=== PATIENT | female | born 1945 | race Asian ===

== ENCOUNTER 2021-08-04 11:03 | Emergency (ER) | payer MEDICARE, OTHER ==
[2021-08-04 11:14] VITALS: BP 100/73
--- NOTE | 2021-08-04 12:05 | XRAY Report ---
PROCEDURE: Knee 3 View RT INDICATIONS: pain; no trauma TECHNIQUE: 3 views of the right knee(s) were acquired. COMPARISON: None. FINDINGS: Bones: No fractures or dislocations. No suspicious bony lesions. Chondrocalcinosis. Mild medial co mpartment joint space loss. Soft tissues: No joint effusion. No suspicious soft tissue calcifications. IMPRESSION: CPPD arthropathy. No evidence acute bony abnormality of the right knee. If clinical suspicion and/or symptoms persist, further assessment with repeat plain films or advanced imaging (e.g., CT, MRI, or bone scan) may be helpful for further assessment. Reviewed by: Shar Vieyra MD on 08/04/2021 12:03 PM PDT Approved by: Shar Vieyra MD on 08/04/2021 12:03 PM PDT Station ID: [id number]
--- NOTE | 2021-08-04 12:14 | ED Physician Documentation ---
History of Present Illness - Stated complaint Stated Complaint: R LEG/KNEE PAIN - Chief complaint Chief Complaint: Ext Problem - Additonal information Additional information: 76-year-old female presents emergency department for evaluation of 2 days right knee pain. No recent falls or trauma no swelling. She does have a history of arthritis. States it is painful mostly behind the knee especially when ambulating. Review of Systems Constitutional: denies: Fever, Chills Nose: reports: Reviewed and negative Throat: reports: Reviewed and negative Cardiac: reports: Reviewed and negative Respiratory: reports: Reviewed and negative GI: reports: Reviewed and negative Musculoskeletal: reports: Joint pain Neurologic: reports: Reviewed and negative PD PAST MEDICAL HISTORY - Allergies Allergies/Adverse Reactions: Allergies Allergy/AdvReac Type Severity Reaction Status Date / Time No Known Drug Allergies Allergy Verified 08/04/21 11:14 PD ED PE EXPANDED - General General: Alert, No acute distress, Well developed/nourished - Extremities Extremities: Right knee (Tenderness posterior knee with palpation. No obvious swelling. Limited flexion secondary to pain. She does have a palpable swelling in the posterior knee when standing. Distal 2+ DP pulse. Antalgic gait using a cane.) Results - Vitals Vitals: Vital Signs - 24 hr 08/04/21 11:09 Temperature 36.4 C L Heart Rate 73 Respiratory 16 Rate Blood Pressure 100/73 O2 Saturation 97 Oxygen O2 Source Room air - Rads (name of study) rightee Radiology: Final report received (CPPD arthropathy. No evidence of acute bony abnormality of the right knee.) PD MEDICAL DECISION MAKING - ED course Complexity details: reviewed results, re-evaluated patient, considered differential, d/w patient ED course: 76-year-old female presents emergency department for evaluation of 2 days posterior right knee pain in the absence of trauma. X-ray suggest CPPD arthropathy. On exam she does have palpable swelling behind the left knee most consistent with a Contreras's cyst. These findings were discussed with the patient and her soon-to-be at the bedside. She was given an Aram wrap and felt marked improvement in her symptoms. Did recommend a short course of NSAID medication coupled with Tylenol. She will follow-up with her primary care provider. If not markedly better in 7 to 10 days may benefit from referral to orthopedics. Departure - Departure Disposition: 01 Home, Self Care Clinical Impression: Knee arthropathy Contreras's cyst of knee Qualifiers: Laterality: right Qualified Code(s): M71.21 - Synovial cyst of popliteal space [Contreras], right knee Condition: Stable Record reviewed to determine appropriate education?: Yes Comments: Elyssa you are seen today for pain behind your right knee. The x-ray shows that you have a fairly significant arthritis which is probably contributing to the symptoms. Be you also have a swelling behind your knee consistent with what is called a Contreras's cyst. I recommended that you alternate Tylenol and ibuprofen at home for the pain. Do not use the ibuprofen for longer than about 1 week. Use the Aram wrap when out of bed. In most cases knee flare pain resolves after 7 to 10 days. If not markedly better your primary doctor may need a referral for you to orthopedics or physical therapy for follow-up.
== END 2021-08-04 12:32 | disposition home or self-care (01) ==
LOC: ED 11:03
DX: M71.21 Synovial cyst of popliteal space [Baker], right knee (principal); M17.11 Unilateral primary osteoarthritis, right knee
CPT/HCPCS: 99282; 99283